=== PATIENT | female | born 1995 | race Two or more races ===

== ENCOUNTER 2023-07-08 20:52 | Outpatient (CLI) | payer OTHER ==
[~2023-07-08] VITALS: Ht 170.2 cm; Wt 87.8 kg
[2023-07-08] MEDS ORDERED: HOME MED LIST COMPLETE! XX SCH (21:05)
[2023-07-08 21:12] VITALS: BP 135/69
[2023-07-08 22:09] LABS: AMORPHOUS SEDIMENT SMALL (NEGATIVE); APPEARANCE, URINE CLOUDY (CLEAR); BACTERIA, URINE AUTO 1+ (NEGATIVE); BILIRUBIN, URINE AUTO NEGATIVE (NEGATIVE); BLOOD, URINE BLOOD NEGATIVE (NEGATIVE); COLOR, URINE YELLOW (YELLOW); GLUCOSE, URINE (UA) AUTO NEGATIVE (NEGATIVE); KETONE, URINE AUTO NEGATIVE (NEGATIVE); LEUKOCYTE ESTERASE, URINE AUTO 3+ (NEGATIVE); MUCUS, URINE SMALL (NEGATIVE); NITRITE, URINE AUTO NEGATIVE (NEGATIVE); PROTEIN, URINE AUTO NEGATIVE (NEGATIVE); RBC, URINE AUTO 0 /HPF (0-3); SPECIFIC GRAVITY URINE AUTO 1.018 (1.002-1.035); SQUAMOUS EPITHELIAL CELL UR AU 14 /HPF (0-6); WBC, URINE AUTO 10 /HPF (0-3)
[2023-07-08 23:10] VITALS: BP 117/66
[2023-07-09 00:43] LABS: HIV 1&2 SCREEN NEGATIVE (NEGATIVE)
[2023-07-09 00:56] LABS: HEPATITIS C VIRUS ABY INDEX 0.12 INDEX (<0.8)
== END 2023-07-09 00:30 | disposition home or self-care (01) ==
LOC: M LDO 20:52
PROVIDERS: ATTEND Advanced Practice Midwife
DX: O26.852 Spotting complicating pregnancy, second trimester (principal); Z87.59 Personal history of other complications of pregnancy, childbirth and the puerperium; O46.92 Antepartum hemorrhage, unspecified, second trimester; Z3A.27 27 weeks gestation of pregnancy
CPT/HCPCS: 36415; 59025; 76811; 76820; 81001; 86762; 86780; 86803; 86850; 86900; 86901; 87086; 87340; 87389; G0463

== ENCOUNTER → 2023-07-25 | Outpatient (CLI) | payer OTHER ==
[2023-07-25 15:40] LABS: HEMATOCRIT 31.1 % (36.0-47.0); HEMOGLOBIN 10.1 g/dl (12.0-15.5); MEAN CORPUSCULAR HEMOGLOBIN 30.5 pg (27.0-33.0); MEAN CORPUSCULAR HGB CONC 32.5 g/dl (32.0-36.5); PLATELET COUNT, AUTOMATED 328 10^3/uL (150-450); RED BLOOD COUNT 3.31 10^6/uL (4.00-5.40); WHITE BLOOD COUNT 11.2 10^3/uL (4.0-10.0)
[2023-07-25 16:41] LABS: GC DNA AMPLIFICATION NEGATIVE (NEGATIVE)
== END ==
LOC: M PLALAB 10:16
PROVIDERS: ATTEND Advanced Practice Midwife
DX: Z34.92 Encounter for supervision of normal pregnancy, unspecified, second trimester (principal)

== ENCOUNTER → 2023-08-01 | Outpatient (CLI) | payer OTHER | LOC: M RAD 06:35 | PROVIDERS: ATTEND Advanced Practice Midwife | DX: Z34.92 Encounter for supervision of normal pregnancy, unspecified, second trimester (principal) ==

== ENCOUNTER → 2023-08-30 | Outpatient (REF) | payer OTHER ==
[~2023-08-30] MED LIST: ACET-683 PO; FERR325T3 PO; IBUP80TA PO
== END ==
LOC: M PLALAB 16:50
PROVIDERS: ATTEND Advanced Practice Midwife
DX: N90.7 Vulvar cyst (principal)

== ENCOUNTER → 2023-09-11 | Outpatient (REF) | payer OTHER | LOC: M PLALAB 11:21 | PROVIDERS: ATTEND Advanced Practice Midwife | DX: Z34.80 Encounter for supervision of other normal pregnancy, unspecified trimester (principal) ==

== ENCOUNTER 2023-09-29 06:11 | Inpatient (IN) | payer OTHER ==
[~2023-09-29] VITALS: Ht 170.2 cm; Wt 90.0 kg
[2023-09-29] VITALS (26 sets, daily range): BP systolic 108–181; BP diastolic 59–109; O2SAT 99
[2023-09-29] MEDS ORDERED: HOME MED LIST COMPLETE! XX SCH (06:40)
[2023-09-29] MEDS ORDERED: LIDOCAINE 1% MDV 20ML VIAL INFIL PRN (07:25)
[2023-09-29] MEDS ORDERED: OXYTOCIN DRIP 30 UNITS in IV 1 EA IV PRN (07:25)
[2023-09-29 08:19] LABS: HEMATOCRIT 30.6 % (36.0-47.0); MEAN CORPUSCULAR HEMOGLOBIN 28.4 pg (27.0-33.0); MEAN CORPUSCULAR HGB CONC 32.7 g/dl (32.0-36.5); MEAN CORPUSCULAR VOLUME 86.9 fl (80.0-96.0); PLATELET COUNT, AUTOMATED 269 10^3/uL (150-450); RED BLOOD COUNT 3.52 10^6/uL (4.00-5.40); WHITE BLOOD COUNT 9.8 10^3/uL (4.0-10.0)
[2023-09-29] MEDS: PRENATAL VITAMINS CHEWABLE TABLET PO SCH (09:00)
[2023-09-29] MEDS ORDERED: FERR325T3 PO (09:08)
[2023-09-29] MEDS ORDERED: OXYTOCIN DRIP 30 UNITS in IV 1 EA IV SCH (10:20)
[2023-09-29] MEDS ORDERED: LR 1,000 ML IV SCH (10:30)
[2023-09-29] MEDS ORDERED: NALBUPHINE HCL 1MG/0.1ML (100MG/10ML) MDV IV ONE (13:30)
[2023-09-29] MEDS ORDERED: EPIDURAL/PCA KEYS XX PRN (13:35)
[2023-09-29] MEDS ORDERED: diphenhydrAMINE 50MG/ML VIAL IV PRN (13:35)
[2023-09-29] MEDS ORDERED: ePHEDrine SULFATE 25 MG/5 ML(5MG/ML) SYRINGE IVP PRN (13:35)
[2023-09-29] MEDS ORDERED: ONDANSETRON 4MG 2ML VIAL IV PRN (13:35)
[2023-09-29] MEDS ORDERED: LR 500 ML IV PRN (13:35)
[2023-09-29] MEDS ORDERED: NALOXONE INJ 0.4MG/1ML VIAL IV PRN (13:35)
[2023-09-29] MEDS ORDERED: FENTANYL/ROPIVACAINE/NACL BAG 100 ML EPIDURAL SCH (13:35)
[2023-09-29] MEDS ORDERED: IBUPROFEN 800 MG TAB PO PRN (15:30)
[2023-09-29] MEDS ORDERED: RHOGAM 300MCG (1500IU) INJ IM SCH (15:30)
[2023-09-29] MEDS ORDERED: DIBUCAINE 1% OINTMENT 30GM TOP PRN (15:30)
[2023-09-29] MEDS ORDERED: ACETAMINOPHEN TAB 650MG DOSE (2X325MG) PO PRN (15:30)
[2023-09-29] MEDS ORDERED: METHYLERGONOVINE MALEATE 0.2 MG TAB PO PRN (15:30)
[2023-09-29] MEDS ORDERED: ACETAMINOPHEN 500 MG TAB PO PRN (15:30)
[2023-09-29] MEDS ORDERED: DOCUSATE SODIUM 100MG CAPSULE PO PRN (15:30)
[2023-09-29] MEDS: IBUPROFEN 600MG TAB PO PRN (21:09)
[2023-09-30 06:00] VITALS: BP 133/75; O2SAT 96
[2023-09-30] MEDS: PRENATAL VITAMINS CHEWABLE TABLET PO SCH (09:32)
[2023-09-30 18:00] VITALS: BP 136/88; O2SAT 100
[2023-10-01 06:00] VITALS: BP 121/85; O2SAT 98
[2023-10-01] MEDS: IBUPROFEN 600MG TAB PO PRN (06:21)
[2023-10-01] MEDS ORDERED: IBUP80TA PO (08:53)
[2023-10-01] MEDS ORDERED: ACET-683 PO (08:53)
[2023-10-01] MEDS ORDERED: MEASLES,MUMPS,RUBELLA VACCINE INJ (MMR-II) SC.IMMUN ONE (09:00)
[2023-10-01] MEDS: PRENATAL VITAMINS CHEWABLE TABLET PO SCH (09:09)
== END 2023-10-01 12:40 | disposition home or self-care (01) | DRG 807 ==
LOC: M LDO 06:11 → M LDI 07:18 → M OBS 18:17
PROVIDERS: ADMIT Specialist; ATTEND Specialist
PROC: 10E0XZZ Delivery of Products of Conception, External Approach (ICD-10-PCS; principal; 2023-09-29)
PROC: 0HQ9XZZ Repair Perineum Skin, External Approach (ICD-10-PCS; 2023-09-29)
DX: O69.82X0 Labor and delivery complicated by other cord entanglement, without compression, not applicable or unspecified (principal); Z37.0 Single live birth; Z3A.38 38 weeks gestation of pregnancy; O70.0 First degree perineal laceration during delivery

== ENCOUNTER 2024-03-13 14:58 | Observation (INO) | payer OTHER ==
[~2024-03-13] VITALS: Ht 170.2 cm; Wt 87.0 kg
[2024-03-13] MEDS ORDERED: FERR325T3 PO (15:14)
[2024-03-13 16:55] LABS: BASO % 0.2 % (0.0-1.0); EOS # 0.1 10^3/uL (0.0-0.5); EOS % 0.3 % (0.0-3.0); HEMATOCRIT 42.7 % (36.0-47.0); HEMOGLOBIN 13.9 g/dl (12.0-15.5); LYMPH # 1.5 10^3/uL (1.5-5.0); LYMPH % 8.9 % (24.0-44.0); MEAN CORPUSCULAR HEMOGLOBIN 29.1 pg (27.0-33.0); MEAN CORPUSCULAR HGB CONC 32.6 g/dl (32.0-36.5); MEAN CORPUSCULAR VOLUME 89.3 fl (80.0-96.0); MONO # 0.9 10^3/uL (0.0-0.8); MONO % 5.2 % (2.0-8.0); NEUTROPHILS # 14.7 10^3/uL (1.5-8.5); NEUTROPHILS % 84.9 % (36.0-66.0); PLATELET COUNT, AUTOMATED 401 10^3/uL (150-450); RED BLOOD COUNT 4.78 10^6/uL (4.00-5.40); WHITE BLOOD COUNT 17.3 10^3/uL (4.0-10.0)
[2024-03-13 17:21] LABS: CK-MB VALUE MASS < 1.0 NG/ML (<3.6); LIPASE 32 U/L (12-53)
[2024-03-13 17:22] LABS: HCG, SERUM QUALITATIVE NEGATIVE (NEGATIVE)
[2024-03-13 17:23] LABS: CPK CREATINE PHOSPHOKINASE 139 U/L (34-145); MB/CK RELATIVE INDEX 0.71 (< OR =4)
[2024-03-13 17:24] LABS: ALBUMIN 4.3 G/DL (3.2-5.2); ALKALINE PHOSPHATASE 139 U/L (46-116); ALT/SGPT 107 U/L (7.0-40); AST/SGOT 180 U/L (<34); BILIRUBIN,DIRECT 0.2 MG/DL (<0.4); BILIRUBIN,TOTAL 0.4 MG/DL (0.3-1.2); BLOOD UREA NITROGEN 15 MG/DL (9-23); CALCIUM LEVEL 9.4 MG/DL (8.5-10.1); CARBON DIOXIDE LEVEL 27 MMOL/L (20-31); CHLORIDE LEVEL 107 MMOL/L (98-107); CREATININE FOR GFR 0.63 MG/DL (0.55-1.30); GLOMERULAR FILTRATION RATE > 60.0 (>60); GLUCOSE, FASTING 98 MG/DL (60-100); POTASSIUM SERUM 4.3 MMOL/L (3.5-5.1); SODIUM LEVEL 140 MMOL/L (136-145); TOTAL PROTEIN 7.7 G/DL (5.7-8.2)
[2024-03-13] MEDS: ONDANSETRON 4MG 2ML VIAL IV ONE (17:59)
[2024-03-13] MEDS: NS 1,000 ML IV ONE (17:59)
[2024-03-13] MEDS: KETOROLAC 30 MG/ML 1ML VIAL IV ONE (17:59)
[2024-03-13] MEDS: PIPERACILLIN/TAZOBACTAM SOD 3.375 GM in D5W MINI-BAG PLUS 50 ML IV ONE (18:30)
[2024-03-13] MEDS: MORPHINE 2 MG/ML 1ML VIAL IV ONE (18:52)
[2024-03-13] MEDS ORDERED: FERR325T19 PO (19:14)
[2024-03-13] MEDS ORDERED: HOME MED LIST COMPLETE! XX SCH (19:15)
[2024-03-13 21:30] VITALS: BP 119/85; TEMP 97.7
[2024-03-14] VITALS (9 sets, daily range): BP systolic 109–142; BP diastolic 70–87; TEMP 96.8–99.4; O2SAT 97–98
[2024-03-14] MEDS: PIPERACILLIN/TAZOBACTAM SOD 3.375 GM in D5W MINI-BAG PLUS 50 ML IV SCH (00:10)
[2024-03-14] MEDS: KETOROLAC 30 MG/ML 1ML VIAL IV PRN (00:11)
[2024-03-14] MEDS: SENOKOT S TAB PO SCH (00:11)
[2024-03-14] MEDS: NS 1,000 ML IV SCH (04:33)
[2024-03-14 07:14] LABS: HEMATOCRIT 39.5 % (36.0-47.0); HEMOGLOBIN 12.5 g/dl (12.0-15.5); MEAN CORPUSCULAR HEMOGLOBIN 28.6 pg (27.0-33.0); MEAN CORPUSCULAR HGB CONC 31.6 g/dl (32.0-36.5); MEAN CORPUSCULAR VOLUME 90.4 fl (80.0-96.0); PLATELET COUNT, AUTOMATED 347 10^3/uL (150-450); RED BLOOD COUNT 4.37 10^6/uL (4.00-5.40); WHITE BLOOD COUNT 7.6 10^3/uL (4.0-10.0)
[2024-03-14 07:36] LABS: ALBUMIN 3.3 G/DL (3.2-5.2); ALKALINE PHOSPHATASE 147 U/L (46-116); ALT/SGPT 182 U/L (7.0-40); AST/SGOT 226 U/L (<34); BILIRUBIN,TOTAL 1.1 MG/DL (0.3-1.2); BLOOD UREA NITROGEN 13 MG/DL (9-23); CALCIUM LEVEL 8.6 MG/DL (8.5-10.1); CARBON DIOXIDE LEVEL 25 MMOL/L (20-31); CHLORIDE LEVEL 110 MMOL/L (98-107); GLOMERULAR FILTRATION RATE > 60.0 (>60); GLUCOSE, FASTING 106 MG/DL (60-100); POTASSIUM SERUM 4.1 MMOL/L (3.5-5.1); SODIUM LEVEL 141 MMOL/L (136-145); TOTAL PROTEIN 6.5 G/DL (5.7-8.2)
[2024-03-14] MEDS: ONDANSETRON 4MG 2ML VIAL IV PRN (10:00)
[2024-03-14] MEDS: ACETAMINOPHEN TAB 650MG DOSE (2X325MG) PO PRN (10:02)
[2024-03-14] MEDS: MORPHINE 2 MG/ML 1ML VIAL IV ONE (11:07)
[2024-03-14 15:12] LABS: ALBUMIN 3.5 G/DL (3.2-5.2); ALKALINE PHOSPHATASE 156 U/L (46-116); ALT/SGPT 264 U/L (7.0-40); AST/SGOT 287 U/L (<34); BILIRUBIN,TOTAL 1.5 MG/DL (0.3-1.2); BLOOD UREA NITROGEN 11 MG/DL (9-23); CALCIUM LEVEL 8.8 MG/DL (8.5-10.1); CARBON DIOXIDE LEVEL 24 MMOL/L (20-31); CHLORIDE LEVEL 109 MMOL/L (98-107); CREATININE FOR GFR 0.67 MG/DL (0.55-1.30); GLOMERULAR FILTRATION RATE > 60.0 (>60); GLUCOSE, FASTING 91 MG/DL (60-100); POTASSIUM SERUM 4.4 MMOL/L (3.5-5.1); SODIUM LEVEL 142 MMOL/L (136-145)
[2024-03-14] MEDS ORDERED: MIDAZOLAM INJ 2MG/2ML VIAL As Ordered ONE (17:16)
[2024-03-14] MEDS ORDERED: LIDOCAINE 2% 100MG/5ML SDV (FOR ANES.) As Ordered ONE (17:16)
[2024-03-14] MEDS ORDERED: propofoL 200 MG/20 ML VIAL As Ordered ONE (17:16)
[2024-03-14] MEDS ORDERED: ESMOLOL INJ 100MG/10ML VIAL As Ordered ONE (17:16)
[2024-03-14] MEDS ORDERED: ROCURONIUM BROMIDE 50MG/5ML VIAL As Ordered ONE (17:16)
[2024-03-14] MEDS ORDERED: fentaNYL 100 MCG/2 ML INJECTION As Ordered ONE (17:16)
[2024-03-14] MEDS ORDERED: ACETAMINOPHEN 1000MG 100ML IV BAG As Ordered ONE (17:17)
[2024-03-14] MEDS ORDERED: ONDANSETRON 4MG 2ML VIAL As Ordered ONE (17:19)
[2024-03-14] MEDS ORDERED: HYDROmorphone HCL 2MG/ML 1ML VIAL As Ordered ONE (17:20)
[2024-03-14] MEDS ORDERED: SUGAMMADEX SODIUM 500 MG/5 ML VIAL (BRIDION) As Ordered ONE (17:31)
[2024-03-14] MEDS ORDERED: KETOROLAC 60MG 2ML VIAL As Ordered ONE (17:32)
[2024-03-14] MEDS ORDERED: dexmedeTOMIDine (4MCG/ML)200MCG/50ML BTL (PRECEDEX) As Ordered ONE (17:46)
[2024-03-14] MEDS ORDERED: ONDANSETRON 4MG 2ML VIAL IV PRN (18:35)
[2024-03-14] MEDS: HYDROMORPHONE HCL 0.5 MG/ 0.5 ML SYRINGE IV PRN (18:42)
[2024-03-14] MEDS: NORCO, ANEXSIA 5/325MG TABLET (HYDROcodone/ACETAMINOPHEN) PO PRN (23:36)
[2024-03-15 00:45] VITALS: BP 122/75; TEMP 97.9; O2SAT 98
[2024-03-15 04:45] VITALS: BP 132/78; TEMP 97.9; O2SAT 98
[2024-03-15 07:50] LABS: BASO % 0.1 % (0.0-1.0); HEMATOCRIT 39.6 % (36.0-47.0); HEMOGLOBIN 12.9 g/dl (12.0-15.5); LYMPH # 0.9 10^3/uL (1.5-5.0); MEAN CORPUSCULAR HEMOGLOBIN 29.1 pg (27.0-33.0); MEAN CORPUSCULAR HGB CONC 32.6 g/dl (32.0-36.5); MEAN CORPUSCULAR VOLUME 89.2 fl (80.0-96.0); MONO # 0.4 10^3/uL (0.0-0.8); MONO % 3.9 % (2.0-8.0); NEUTROPHILS # 9.3 10^3/uL (1.5-8.5); NEUTROPHILS % 87.7 % (36.0-66.0); PLATELET COUNT, AUTOMATED 365 10^3/uL (150-450); RED BLOOD COUNT 4.44 10^6/uL (4.00-5.40); WHITE BLOOD COUNT 10.6 10^3/uL (4.0-10.0)
[2024-03-15 08:00] VITALS: BP 125/73; TEMP 98.2; O2SAT 100
[2024-03-15] MEDS: NORCO, ANEXSIA 5/325MG TABLET (HYDROcodone/ACETAMINOPHEN) PO PRN (08:22)
[2024-03-15 08:23] LABS: ALBUMIN 3.3 G/DL (3.2-5.2); ALKALINE PHOSPHATASE 212 U/L (46-116); ALT/SGPT 466 U/L (7.0-40); AST/SGOT 274 U/L (<34); BILIRUBIN,TOTAL 0.8 MG/DL (0.3-1.2); BLOOD UREA NITROGEN 7 MG/DL (9-23); CALCIUM LEVEL 8.7 MG/DL (8.5-10.1); CARBON DIOXIDE LEVEL 25 MMOL/L (20-31); CHLORIDE LEVEL 109 MMOL/L (98-107); CREATININE FOR GFR 0.64 MG/DL (0.55-1.30); GLOMERULAR FILTRATION RATE > 60.0 (>60); GLUCOSE, FASTING 118 MG/DL (60-100); POTASSIUM SERUM 4.1 MMOL/L (3.5-5.1); SODIUM LEVEL 141 MMOL/L (136-145); TOTAL PROTEIN 6.7 G/DL (5.7-8.2)
[2024-03-15] MEDS ORDERED: HYDR-3715 PO (09:35)
== END 2024-03-15 11:07 | disposition home or self-care (01) ==
LOC: M ED 14:58 → M ED INP 14:59 → M PED 21:30
PROVIDERS: ADMIT Surgery; ATTEND Surgery
DX: K81.0 Acute cholecystitis (principal)
CPT/HCPCS: 36415; 47562; 76705; 80048; 80053; 80076; 81001; 82550; 82553; 83690; 84484; 84703; 85025; 85027; 88304; 96361; 96365; 96366; 96375; 96376; 99284; J0131; J0665; J1100; J1170; J1805; J1885; J2250; J2405; J2543; J3010; S2900

== ENCOUNTER → 2025-07-09 | Outpatient (REF) | payer OTHER ==
[~2025-07-09] MED LIST changes: +CEFD1CAP9; +FERR325T19 PO; +HYDR-3715 PO
[2025-07-10 11:46] LABS: APPEARANCE, URINE CLOUDY (CLEAR); BACTERIA, URINE AUTO 3+ (NEGATIVE); BILIRUBIN, URINE AUTO NEGATIVE (NEGATIVE); BLOOD, URINE BLOOD NEGATIVE (NEGATIVE); CALCIUM OXALATE CRYSTALS MODERATE; GLUCOSE, URINE (UA) AUTO NEGATIVE (NEGATIVE); KETONE, URINE AUTO TRACE mg/dL (NEGATIVE); LEUKOCYTE ESTERASE, URINE AUTO TRACE (NEGATIVE); MUCUS, URINE LARGE (NEGATIVE); NITRITE, URINE AUTO POSITIVE (NEGATIVE); PROTEIN, URINE AUTO 1+ mg/dL (NEGATIVE); RBC, URINE AUTO 0 /HPF (0-3); SPECIFIC GRAVITY URINE AUTO 1.028 (1.002-1.035); SQUAMOUS EPITHELIAL CELL UR AU 5 /HPF (0-6); UROBILINOGEN, URINE AUTO 0.2 mg/dL (0.0-2.0); WBC, URINE AUTO 2 /HPF (0-3)
== END ==
LOC: M LAB REF 19:23
PROVIDERS: ATTEND Physician Assistant
DX: N39.0 Urinary tract infection, site not specified (principal)

== ENCOUNTER 2025-07-12 14:34 | Emergency (ER) | payer OTHER ==
[~2025-07-12] VITALS: Ht 170.2 cm; Wt 81.1 kg
[~2025-07-12 14:34] MED LIST changes: -CEFD1CAP9
[2025-07-12] MEDS ORDERED: CEFD1CAP9 (14:40)
[2025-07-12 17:24] LABS: BASO # 0.0 10^3/uL (0.0-0.2); BASO % 0.1 % (0.0-1.0); EOS # 0.1 10^3/uL (0.0-0.5); EOS % 1.1 % (0.0-3.0); LYMPH # 0.8 10^3/uL (1.5-5.0); LYMPH % 8.3 % (24.0-44.0); MONO # 0.5 10^3/uL (0.0-0.8); MONO % 5.2 % (2.0-8.0); NEUTROPHILS # 8.1 10^3/uL (1.5-8.5); NEUTROPHILS % 85.1 % (36.0-66.0); PLATELET COUNT, AUTOMATED 392 10^3/uL (150-450)
[2025-07-12 17:30] LABS: KETONE, URINE AUTO RFX TRACE mg/dL (NEGATIVE); LEUKOCYTE ESTERASE UR AUTO RFX NEGATIVE (NEGATIVE); MUCUS, URINE RFX SMALL (NEGATIVE); NITRITE, URINE AUTO RFX NEGATIVE (NEGATIVE); RBC, URINE AUTO RFX 1 /HPF (0-3); SQUAM EPITHELIAL CELL UR AURFX 1 /HPF (0-6); WBC, URINE AUTO RFX 1 /HPF (0-3)
[2025-07-12 18:04] VITALS: BP 130/79; TEMP 97.6; O2SAT 99
== END 2025-07-12 18:44 | disposition home or self-care (01) ==
LOC: M ED 14:34
DX: O20.0 Threatened abortion (principal); O20.8 Other hemorrhage in early pregnancy; Z3A.09 9 weeks gestation of pregnancy; Z79.2 Long term (current) use of antibiotics

== ENCOUNTER → 2025-07-13 | Outpatient (REF) | payer OTHER ==
[~2025-07-13] MED LIST changes: +CEFD1CAP9
[2025-07-13 16:25] LABS: TOTAL PROTEIN,RANDOM URINE 18.0 MG/DL (0.0-14.0)
[2025-07-13 17:25] LABS: Trichomonas vaginalis (AMP) NOT DETECTED (NEGATIVE)
[2025-07-13 17:48] LABS: GC DNA AMPLIFICATION NEGATIVE (NEGATIVE)
== END ==
LOC: M PLALAB 13:36
PROVIDERS: ATTEND Nurse Practitioner Family
DX: Z34.80 Encounter for supervision of other normal pregnancy, unspecified trimester (principal)

== ENCOUNTER → 2025-07-20 | Outpatient (CLI) | payer OTHER ==
[2025-07-20 15:39] LABS: PLATELET COUNT, AUTOMATED 366 10^3/uL (150-450)
[2025-07-20 16:04] LABS: LDH LACTATE DEHYDROGENASE 161 U/L (120-246)
[2025-07-20 16:06] LABS: ALT/SGPT 16 U/L (7.0-40); AST/SGOT 13 U/L (<34); CREATININE FOR GFR 0.59 MG/DL (0.55-1.30); GLOMERULAR FILTRATION RATE > 90.0 (>60)
[2025-07-20 16:43] LABS: HIV 1&2 SCREEN NEGATIVE (NEGATIVE)
[2025-07-20 16:51] LABS: HEPATITIS C VIRUS ABY INDEX 0.02 INDEX (<0.8)
== END ==
LOC: M PLALAB 12:47
PROVIDERS: ATTEND Nurse Practitioner Family
DX: Z34.80 Encounter for supervision of other normal pregnancy, unspecified trimester (principal); Z3A.00 Weeks of gestation of pregnancy not specified

== ENCOUNTER → 2025-09-28 | Outpatient (CLI) | payer OTHER | LOC: M WHC 09:52 | PROVIDERS: ATTEND Nurse Practitioner Family | DX: Z34.82 Encounter for supervision of other normal pregnancy, second trimester (principal); Z3A.20 20 weeks gestation of pregnancy ==

== ENCOUNTER → 2025-10-08 | Outpatient (REF) | payer OTHER | LOC: M SFHCWAGY 12:53 | PROVIDERS: ATTEND Nurse Practitioner Family | DX: R10.20 Pelvic and perineal pain unspecified side (principal) ==

== ENCOUNTER → 2025-11-03 | Outpatient (CLI) | payer OTHER ==
[2025-11-03 15:39] LABS: PLATELET COUNT, AUTOMATED 310 10^3/uL (150-450)
[2025-11-03 16:21] LABS: GLUCOSE CHALLENGE TEST 1 HOUR 94 MG/DL (LESS THAN 140)
[2025-11-03 16:36] LABS: Trichomonas vaginalis (AMP) NOT DETECTED (NEGATIVE)
[2025-11-03 16:45] LABS: HIV 1&2 SCREEN NEGATIVE (NEGATIVE)
[2025-11-03 16:52] LABS: HEPATITIS C VIRUS ABY INDEX < 0.02 INDEX (<0.8)
[2025-11-03 17:01] LABS: GC DNA AMPLIFICATION NEGATIVE (NEGATIVE)
== END ==
LOC: M PLALAB 13:21
PROVIDERS: ATTEND Nurse Practitioner Family
DX: Z34.82 Encounter for supervision of other normal pregnancy, second trimester (principal)

== ENCOUNTER → 2025-11-17 | Outpatient (REF) | payer OTHER ==
[~2025-11-17] MED LIST changes: +AZO-95TA3 PO
== END ==
LOC: M SFHCWAGY 15:03
PROVIDERS: ATTEND Nurse Practitioner Family
DX: N39.0 Urinary tract infection, site not specified (principal)

== ENCOUNTER 2025-11-19 15:50 | Outpatient (CLI) | payer OTHER ==
[~2025-11-19] VITALS: Ht 170.2 cm; Wt 93.4 kg
[~2025-11-19 15:50] MED LIST changes: -AZO-95TA3 PO
[2025-11-19] MEDS ORDERED: HOME MED LIST COMPLETE! XX SCH (16:05)
[2025-11-19 16:08] VITALS: BP 137/78; O2SAT 95
[2025-11-19 16:46] LABS: PLATELET COUNT, AUTOMATED 356 10^3/uL (150-450)
[2025-11-19 17:05] LABS: ALT/SGPT 12 U/L (7.0-40); AST/SGOT 14 U/L (<34); CALCIUM LEVEL 8.8 MG/DL (8.5-10.1); CARBON DIOXIDE LEVEL 20 MMOL/L (20-31); CHLORIDE LEVEL 107 MMOL/L (98-107); CREATININE FOR GFR 0.67 MG/DL (0.55-1.30); GLOMERULAR FILTRATION RATE > 90.0 (>60); POTASSIUM SERUM 3.7 MMOL/L (3.5-5.1); SODIUM LEVEL 141 MMOL/L (136-145)
[2025-11-19 17:54] VITALS: BP 128/81
[2025-11-19] MEDS: cefTRIAXone SOD 1 GM in DEXTROSE 5% (D5W) ADV/MINI-BAG 50 ML IV SCH (17:58)
[2025-11-19 18:26] VITALS: BP 139/89
[2025-11-19] MEDS ORDERED: ACETAMINOPHEN 500 MG TAB PO PRN (20:10)
[2025-11-19] MEDS: PHENAZOPYRIDINE 100 MG TAB PO SCH (20:24)
[2025-11-19 20:32] VITALS: BP 140/89
[2025-11-20] VITALS (8 sets, daily range): BP systolic 130–145; BP diastolic 81–85; O2SAT 93–97
[2025-11-20] MEDS: LR 1,000 ML IV SCH (07:42)
[2025-11-20] MEDS ORDERED: AZO-95TA3 PO (16:00)
== END 2025-11-20 17:14 | disposition home or self-care (01) ==
LOC: M LDO 15:50
PROVIDERS: ATTEND Advanced Practice Midwife
DX: O23.43 Unspecified infection of urinary tract in pregnancy, third trimester (principal); B96.1 Klebsiella pneumoniae [K. pneumoniae] as the cause of diseases classified elsewhere; Z3A.28 28 weeks gestation of pregnancy
CPT/HCPCS: 59025; 80053; 85027; 96360; 96361; 96365; G0463; J0696